=== PATIENT | male | born 1955 | race Caucasian/White ===

== ENCOUNTER 2017-08-17 10:43 | Day surgery (SDC) | payer OTHER ==
[2017-08-17] MEDS ORDERED: LIDOCAINE 2% (SDV) 5 ML INJ (14:31)
[2017-08-17] MEDS ORDERED: PROPOFOL 60 ML (14:31)
== END 2017-08-17 16:23 | disposition home or self-care (01) ==
LOC: GIL 10:43
DX: Z12.11 Encounter for screening for malignant neoplasm of colon (principal); K57.90 Diverticulosis of intestine, part unspecified, without perforation or abscess without bleeding; K64.8 Other hemorrhoids
CPT/HCPCS: 45378